=== PATIENT | female | born 1985 | race Two or more races ===

== ENCOUNTER 2020-05-29 23:02 | Emergency (ER) | payer OTHER, SELFPAY ==
[~2020-05-29] VITALS: Ht 154.9 cm; Wt 81.7 kg
[2020-05-29 23:10] VITALS: BP 142/91
--- NOTE | 2020-05-30 00:18 | NUR ---
PT UP TO RESTROOM WITH URINE CUP FOR SAMPLE COLLECTION. PT DENIES ANY FURTHER NEEDS AT THIS TIME, CALL LIGHT IN REACH.
[2020-05-30] MEDS ORDERED: MORPHINE SULFATE 4 MG/ML, 1ML IVPush PRN (00:30)
[2020-05-30] MEDS ORDERED: ONDANSETRON 2MG/ML, 2ML IVPush ONE (00:30)
[2020-05-30] MEDS ORDERED: SODIUM CHLORIDE FLUSH 10ML SYR IVF ONE (00:30)
[2020-05-30 00:38] LABS: MICROSCOPIC NOT IND
[2020-05-30] MEDS ORDERED: ONDANSETRON 2MG/ML, 2ML ONE (00:44)
[2020-05-30] MEDS ORDERED: MORPHINE SULFATE 4 MG/ML, 1ML ONE (00:44)
[2020-05-30 00:51] LABS: BASOPHILS # (AUTO) 0.03 x10^3/uL (0-0.1); BASOPHILS % (AUTO) 0 % (0-1); EOSINOPHILS # (AUTO) 0.16 x10^3/uL (0-0.4); EOSINOPHILS % (AUTO) 2 % (1-7); LYMPHOCYTES # (AUTO) 2.72 x10^3/uL (1-3.4); LYMPHOCYTES % (AUTO) 26 % (22-44); MD NO; MEAN CORPUSCULAR HEMOGLOBIN 30.6 pg (27.0-34.8); MEAN CORPUSCULAR HGB CONC 33.6 g/dL (32.4-35.8); MEAN CORPUSCULAR VOLUME 90.9 fL (80-100); MEAN PLATELET VOLUME 9.6 fL (7.4-10.4); MONOCYTES # (AUTO) 0.72 x10^3/uL (0.2-0.8); MONOCYTES % (AUTO) 7 % (2-9); NEUTROPHILS # (AUTO) 7.06 x10^3/uL (1.8-6.8); NEUTROPHILS % (AUTO) 66 % (42-75); PLATELET COUNT 301 x10^3/uL (130-400); RED BLOOD COUNT 4.52 x10^6/uL (3.82-5.3); RED CELL DISTRIBUTION WIDTH 13.5 % (9.6-15.2)
[2020-05-30 01:01] LABS: ALANINE AMINOTRANSFERASE 26 U/L (12-78); ALBUMIN 3.8 g/dL (3.4-5.0); ANION GAP 7 mmol/L (5-15); CALCIUM 8.4 mg/dL (8.5-10.1); CHLORIDE 106 mmol/L (98-107); CREATININE 0.63 mg/dL (0.55-1.02)
[2020-05-30 01:05] LABS: ALKALINE PHOSPHATASE 85 U/L (45-117); BILIRUBIN,TOTAL 0.5 mg/dL (0.2-1.0); TOTAL PROTEIN 8.4 g/dL (6.4-8.2)
--- NOTE | 2020-05-30 01:20 | NUR ---
ERP IN TO SEE. CALL LIGHT IN REACH.
== END 2020-05-30 01:51 | disposition home or self-care (01) ==
LOC: ED 05-30 01:45
DX: K59.00 Constipation, unspecified (principal); R10.84 Generalized abdominal pain; R10.13 Epigastric pain; Z90.49 Acquired absence of other specified parts of digestive tract
CPT/HCPCS: 36415; 74022; 80053; 81003; 83690; 84703; 85025; 96374; 96375; 99284; J2270; J2405